=== PATIENT | female | born 1950 | race African-American/Black ===

== ENCOUNTER 2025-08-04 17:00 | Emergency (ER) | payer MEDICARE ==
[2025-08-04] MEDS ORDERED: Ondansetron PF 4 MG/2 ML Vial ONE (17:28)
[2025-08-04 18:31] LABS: #Basophils 0.1 thou/uL (0.0-0.2); #Eosinophils 0.0 thou/uL (0.0-0.7); #Lymphocytes 1.6 thou/uL (1.20-3.40); #Monocytes 0.4 thou/uL (0.11-0.59); #Neutrophils 3.8 thou/uL (1.40-6.50); %Basophils 1.8 % (0.0-1.0); %Eosinophils 0.2 % (0.0-10.0); %Lymphocytes 26.8 % (21.0-51.0); %Monocytes 7.3 % (0.0-10.0); %Neutrophils 63.9 % (42.0-75.0); Hematocrit 34.1 % (36.0-47.0); Hemoglobin 11.0 g/dL (12.0-16.0); Mean Corpuscular Hemoglobin 32.5 pg (27.0-31.0); Mean Corpuscular Volume 101.2 fl (78.0-98.0); Platelet Count 284 10x3/uL (130-400); Red Blood Cell (RBC) Count 3.37 mill/uL (4.20-5.40); White Blood Cell (WBC) Count 6.0 10x3/uL (4.8-10.8)
[2025-08-04 18:38] LABS: INR-International Normal Ratio 1.0; Prothrombin Time 12.9 sec (12.0-14.7)
[2025-08-04 18:39] LABS: PTT 26.7 sec (22.9-36.1)
[2025-08-04 18:47] LABS: ALT (SGPT) 141 U/L (Less than 34); AST (SGOT) 148 U/L (11-34); Albumin 4.0 g/dL (3.1-4.5); Alkaline Phosphatase 147 U/L (40-110); Anion Gap 19 mmol/L (10-20); BUN (Urea Nitrogen) 54 mg/dL (9.8-20.1); Bilirubin, Total 0.4 mg/dL (0.3-1.2); Calc. Creatinine Clearance 0 mL/min (70-130); Calcium 8.3 mg/dL (7.8-10.44); Carbon Dioxide 16 mmol/L (23-31); Chloride 99 mmol/L (98-107); Globulin 2.5 g/dL (2.4-3.5); Glucose 191 mg/dL (83-110); Lipase 13 U/L (8-78); Magnesium 1.7 mg/dL (1.6-2.6); Sodium 126 mmol/L (136-145)
[2025-08-04 18:49] LABS: Troponin I 0.032 ng/mL (< 0.028)
[2025-08-04 18:51] LABS: Potassium 8.1 mmol/L (3.5-5.1)
[2025-08-04] MEDS ORDERED: Albuterol 2.5 MG (3 mL) NEB ONE (19:23)
[2025-08-04] MEDS ORDERED: Dextrose 50% Abboject 50 ML SYRINGE ONE (19:23)
[2025-08-04 19:24] LABS: Anion Gap 18 mmol/L (10-20); BUN (Urea Nitrogen) 53 mg/dL (9.8-20.1); Calc. Creatinine Clearance 0 mL/min (70-130); Calcium 8.3 mg/dL (7.8-10.44); Carbon Dioxide 17 mmol/L (23-31); Chloride 99 mmol/L (98-107); Glucose 186 mg/dL (83-110); Potassium 7.6 mmol/L (3.5-5.1); Sodium 126 mmol/L (136-145)
[2025-08-04] MEDS ORDERED: Sodium Polystyrene Sulfonate 15 GM (60 mL) BOT ONE (19:24)
[2025-08-04] MEDS ORDERED: Calcium Gluc 4.6 MEQ/10 ML (100 MG/ML) ONE ×3 (19:24→20:47)
== END 2025-08-04 21:13 | disposition short-term general hospital (02) ==
LOC: MADERS 17:00
DX: E87.5 Hyperkalemia (principal); R00.1 Bradycardia, unspecified; R79.89 Other specified abnormal findings of blood chemistry; N19 Unspecified kidney failure; R55 Syncope and collapse; E11.9 Type 2 diabetes mellitus without complications; I48.91 Unspecified atrial fibrillation; Z79.4 Long term (current) use of insulin
CPT/HCPCS: 70450; 71045; 74176; 80053; 83690; 83735; 83880; 84484; 85025; 85610; 85730; 93005; 96361; 96365; 96366; 96374; 96375; J0612; J1815; J2405; J7030; J7611; J7999